=== PATIENT | male | born 1935 | race Caucasian/White ===

== ENCOUNTER 2017-08-09 17:30 | Inpatient (IN) | payer OTHER ==
[~2017-08-09] VITALS: Ht 167.6 cm; Wt 72.7 kg
--- NOTE | ~2017-08-09 | EKG ---
[place] [address] [facility] [place] [address] ELECTROCARDIOGRAM REPORT Name: SEEMA ODOM Room #: 428-P ADM IN M.R.#: [id number] Admission: 08/09/17 Attend Phys: Paxton Babb MD Discharge: Date of : 34 Report #: [id number] THIS REPORT FOR: //name// [facility] Test Date: 2017-08-09 Test Time: 18:54:26 Pat Name: SEEMA ODOM Department: Room: 428 P Gender: M Commissary Officer: Evelin KAPOOR : 1935 Requested By: Paxton Babb Order Number: [id number] MD: Genaro Randhawa Measurements Intervals [place] Rate: 69 P: 19 HI: 162 QRS: -57 QRSD: 102 T: 42 QT: 381 QTc: 408 Interpretive Statements Sinus rhythm LAD, consider left anterior fascicular block Early R-wave progression No previous ECG available for comparison Electronically Signed On 08-10-2017 8:31:34 [employer] by Genaro Randhawa [email or web address] <ELECTRONICALLY SIGNED> By: Genaro Randhawa MD, [facility] 08/10/17 0831 53 53 Genaro Randhawa MD, [facility] /EPI
--- NOTE | ~2017-08-09 | HC ---
[facility] [place] [address] CONSULTATION Name: ILENESEEMA D Room #: 428-P [facility] IN .R.#: [id number] Admission: 08/09/17 Attend Phys: Paxton Babb MD Discharge: Date of : 34 Report #: [id number] THIS REPORT FOR: //name// CC: Paxton Babb DATE OF SERVICE: 08/10/2017 ATTENDING PHYSICIAN: Dr. Babb. REASON FOR CONSULTATION: Leukocytosis. HISTORY OF PRESENT ILLNESS: The patient is an 81-year-old white man who resides at home with and he reported being weak, short winded and running low grade fevers up to 99.9. The patient has history of myelodysplasia and being immunosuppressed host. The possibility of infection entertained and admitted and started on Rocephin 1 gram daily and intravenous fluids and today, the patient states feeling much better. His hematologic and renal parameters have definitely improved. The patient has very slow response to all my questions and all I can extract from him is that he is feeling better. He voices no complaints. PAST MEDICAL HISTORY: 1. Mild progressive dementia, on Aricept and Namenda, but he was not able to tolerate those. 2. Diabetes type 2, on oral hypoglycemic agents. 3. Hypertension. 4. Coronary artery disease. 5. Aortic stenosis. 6. Dyslipidemia. 7. Mild coronary atherosclerosis of left anterior descending artery and the circumflex artery. Ejection fraction 40-45%. DRUG ALLERGIES: None listed. MEDICATIONS AT HOME: The patient is on treatment with glipizide, metoprolol, lisinopril, alprazolam at bedtime, atorvastatin, aspirin, multivitamins. Here in the hospital, the patient is on treatment with ceftriaxone 1 gram daily IV, metoprolol 25 p.o. b.i.d., lisinopril 2.5 mg at bedtime and normal saline 1000 mL IV every 12 hours. SOCIAL HISTORY: See H and P. FAMILY HISTORY: See H and P. REVIEW OF SYSTEMS: As above and see H and P, essentially negative. [address] [place] [address] CONSULTATION Name: SEEMA ODOM Jennifer Room #: 428-P [facility] IN ..#: [id number] Admission: 08/09/17 Attend Phys: Paxton Babb MD Discharge: Date of : 34 Report #: [id number] PHYSICAL EXAMINATION: GENERAL: A well-developed man, not toxic looking, afebrile since admission. VITAL SIGNS: Temperature 97.4, pulse 74, respirations 18, BP 106/47, height 5 feet 6 inches, weight 160 pounds. HEENMT: Within range. NECK: Supple. No thyromegaly or lymphadenopathy. LUNGS: Clear to auscultation. HEART: Loud ejection systolic murmur on the left lower sternal border that radiates into the right sternal border, possibly compatible with aortic stenosis murmur. No gallops. ABDOMEN: Soft, no masses or megaly. GENITALIA AND RECTAL: Revealed Healy catheter in place, and I cannot get a straight answer from him as to whether he has this on a continuous basis at home. EXTREMITIES: No clubbing, cyanosis. NEUROLOGIC: Grossly within normal limits. LABORATORY DATA: On admission, BUN 31, creatinine 1.7 and today the BUN is 29 and creatinine 1.1. Albumin at 3.4 grams on admission, dropped to 3.1 g/dL today. White blood cell count on admission 13,600 drops to 11,000 today. The hemoglobin low 8.2 g/dL, platelets normal 296,000 and the white blood cell count differential is normal. The hemoglobin A1c 7% with estimated average glucose of 154. The urinalysis revealed glycosuria and positive trace ketones, otherwise negative. ABGs revealed pH 7.40, pCO2 of 36, pO2 of 74, bicarbonate 22.6. The lactate elevated at 4.82. This set of gases on room air 21%. Urine culture and blood cultures were obtained and they remain negative at the time of this dictation. Chest x-ray on admission revealed no pulmonary infiltrates whatsoever. ASSESSMENT: 1. Leukocytosis, question etiology, improved. 2. Azotemia, resolved, possibly secondary to mild dehydration. 3. Lactic acidemia. 4. Myelodysplasia. 5. Mild hypoalbuminemia. 6. 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 7. Dementia. SUGGESTIONS: Recommend the patient appears to have improved with intravenous fluids and I suspect mild dehydration, may explain his azotemia, leukocytosis and lactic acidosis. If cultures remain all negative, may consider discontinuation of Rocephin after a few doses and switching the patient to cefuroxime 500 p.o. b.i.d. [address] [address] CONSULTATION Name: SEEMA ODOM Room #: 428-P [facility] IN M.R.#: [id number] Admission: 08/09/17 Attend Phys: Paxton Babb MD Discharge: Date of : 34 Report #: [id number] Babb, thank you for requesting my suggestions in the care of your patient. <ELECTRONICALLY SIGNED> By: Kel Almeida MD 08/11/17 1151 1354 1959 Kel Almeida MD /nt
--- NOTE | ~2017-08-09 | H ---
[facility] [place] [address] HISTORY AND PHYSICAL Name: SEEMA ODOM Room #: 428-P [facility] IN ..#: [id number] Admission: 08/09/17 Attend Phys: Paxton Babb MD Discharge: 08/12/17 Date of : 34 Report #: [id number] THIS REPORT FOR: //name// CC: Paxton Babb DATE OF SERVICE: 08/09/2017 CHIEF COMPLAINT: Weakness, shortness of breath, and fever. HISTORY OF PRESENT ILLNESS: This morning, his found him in the shower leaning up against the wall, unable to stand, having a hard time breathing. Since then, he has been short of breath with any exertion. He has had difficulty walking. He has had a cough, his right hand and his right foot and leg have been noted to be swollen and she feels that they are weak. He came to my office where his gait was very unsteady and weak. His blood pressure is 119/72, his temperature was 99.9, pulse was 68. He looked pale and ill. His gait was much more unsteady and slow than usual. Because of his fever with cough and a suggestion of respiratory infection and possible sepsis, admission is indicated. PAST MEDICAL HISTORY: Most significant for progressive dementia. He has not been able to tolerate either Aricept or Namenda for his dementia. He has become progressively forgetful. His had to quit work to take care of him full-time, before then their son who lives at home was able to help such that she could still work part-time. He has type 2 diabetes, well managed with oral medication. He has hypertension. He sees Dr. Guido Vincent for coronary artery disease, aortic stenosis and hypertension. He also has hyperlipidemia. His aortic stenosis was moderate on an echocardiogram in 01/2016. Coronary arteriogram in 03/2016 showed mild atherosclerosis of the LAD and left circumflex with an occluded right coronary artery. Ejection fraction is 40-45%. The distal RCA system was filled by left to right collaterals. He is reported as having had and non-ST elevation myocardial infarction 02/25/2016 and pneumonia that same date. He has mild myelodysplastic syndrome for the last 10 years and periodically receives an Aranesp injection with hemoglobin and hematocrit being checked every 2 weeks to every 4 weeks. CURRENT MEDICATIONS: Glipizide extended release 5 mg every morning, metoprolol tartrate 25 mg twice daily, lisinopril 5 mg 1/2 tablet at bedtime, alprazolam 0.25 mg 1 tablet at bedtime, atorvastatin 40 mg 1 in the morning, 81 mg of aspirin once daily, vitamin D3 in the morning, multiple vitamin in the morning. Aranesp every 2-4 weeks depending upon his hemoglobin needs. ALLERGIES: None known. [facility] [address] [place] [address] HISTORY AND PHYSICAL Name: SEEMA ODOM Room #: 428-P [facility] IN .R.#: [id number] Admission: 08/09/17 Attend Phys: Paxton Babb MD Discharge: 08/12/17 Date of : 34 Report #: [id number] SOCIAL HISTORY: He lives at home with his . He is retired and over the last 5 years has developed such ____ dementia that he is unable to take care of himself. He can still toilet himself. His , is his power of civil attorney for medical affairs, knows that he would not wish to be resuscitated given his current degree of cognitive dysfunction and Alzheimer disease. REVIEW OF SYSTEMS: Generally negative, the patient himself says that he is "fine." His reports over the last several months increasing shortness of breath with any activity at all. He has a current fever of 99.9. He wears a disposable undergarment for bladder control problems. PHYSICAL EXAMINATION: GENERAL: Shows an 80-year-old elderly male, who is in mild distress. HEENT: Remarkable for dry oral mucosa. The tympanic membranes both appeared relatively normal after removing some wax in the external canals. The oropharynx is only minimally dehydrated, and is otherwise unremarkable. The nares are mildly dry themselves. NECK: Negative. LUNGS: Clear to auscultation and percussion. CARDIOVASCULAR: S1 and S2 were normal with the soft systolic murmur at the right upper intercostal space with a regular rhythm. ABDOMEN: Soft and nontender without hepatosplenomegaly or masses. EXTREMITIES: There is no pedal edema on either foot. The skin of both feet is intact. There is mild decrease in sensation to light touch. NEUROLOGIC: Screening neurological examination shows that his gait is somewhat unsteady and unsure, but there are no focal neurological deficits. Oxygen saturation on room air while sitting is 98. Influenza A and influenza B by office testing were both negative. ASSESSMENT: 1. Sepsis. 2. With the cough, suspect the source of his infection is pulmonary. 3. Toxic encephalopathy - his reports he is more quiet than usual since his illness was noted earlier this morning. 4. Fever. 5. Cough. 6. Control in hypertension. 7. Mild dehydration from dry mucosa. 8. 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 9. Coronary artery disease. 10. Progressive dementia. PLAN: The patient is admitted for intravenous fluids and studies regarding the [address] [address] HISTORY AND PHYSICAL Name: SEEMA ODOM Room #: 428-P [facility]#: [id number] Admission: 08/09/17 Attend Phys: Paxton Babb MD Discharge: 08/12/17 Date of : 34 Report #: [id number] source of his fever. Physical Therapy and Occupational Therapy are being consulted. Case management is being consulted. An MRI of the brain is planned. Other investigations as results from current investigations return complete. The patient is a do not resuscitate status. <ELECTRONICALLY SIGNED> By: Paxton Babb MD 08/28/17 2302 1750 1856 Paxton Babb MD /nt
[2017-08-09 18:10] VITALS: BP 114/51
[2017-08-09 19:19] LABS: HEMATOCRIT 26.4 % (42.0-52.0); HEMOGLOBIN 8.9 gm/dL (14.0-18.0); MCH 38.4 pg (26.0-34.0); MCHC 33.5 g/dL (28.0-37.0); MCV 114.4 fL (80.0-100.0); PLATELET COUNT 322 thou/uL (150-400); RBC 2.31 mil/uL (4.50-6.00); RDW 19.1 % (10.5-14.5); WBC 13.6 thou/uL (4.0-11.0)
[2017-08-09 19:28] LABS: BE(vivo) -1.8 mmol/L (-2 to +3); HCO3 22.6 mmol/L (22.0-26.0); PCO2 36.8 mmHg (35.0-45.0); PO2 74.9 mmHg (80.0-100.0); pH 7.406 (7.360-7.450); sO2 95.2 % (92.0-98.0)
[2017-08-09 19:34] LABS: ALBUMIN 3.4 g/dL (3.4-5.0); CALCIUM 9.4 mg/dL (8.5-10.1); CREATININE 1.7 mg/dL (0.7-1.3); POTASSIUM 4.4 mmol/L (3.5-5.1); TOTAL BILIRUBIN 0.6 mg/dL (<0.1-1.0); TOTAL PROTEIN 6.3 g/dL (6.4-8.2)
[2017-08-09 20:00] VITALS: BP 118/50
[2017-08-09 20:02] LABS: FOLIC ACID 24.1 ng/mL (8.6-58.9); TSH 1.645 uIU/mL (0.358-3.740)
[2017-08-09] MEDS ORDERED: GLUCOTROL5 MG PO (21:46)
[2017-08-09] MEDS ORDERED: LOPRESSOR25 PO (21:47)
[2017-08-09] MEDS ORDERED: LISINOPRIL2.5 MG PO (21:48)
[2017-08-09] MEDS ORDERED: XANAX 0.25 MG0.25 MG PO (21:49)
[2017-08-09] MEDS ORDERED: ATORVASTATIN CA40 MG PO (21:50)
[2017-08-09] MEDS ORDERED: ASPIR 8181 MG PO (21:51)
[2017-08-09] MEDS ORDERED: CENTRUM SILVER1 EAC4 PO (21:51)
[2017-08-09 23:38] LABS: ABSOLUTE NEUTROPHILS 11.4 thou/uL (1.4-8.2); ANISOCYTOSIS 2+; LARGE PLATELETS RARE; MACROCYTES 2+
[2017-08-10 03:47] LABS: URINE BILIRUBIN NEGATIVE (Negative); URINE BLOOD NEGATIVE (Negative); URINE CLARITY CLEAR; URINE COLOR YELLOW; URINE GLUCOSE-RANDOM* 1+ (Negative); URINE KETONES TRACE (Negative); URINE LEUKOCYTES NEGATIVE (Negative); URINE NITRITE NEGATIVE (Negative); URINE PROTEIN (DIPSTICK) NEGATIVE (Negative); URINE SPECIFIC GRAVITY 1.025 (1.005-1.035); URINE UROBILINOGEN 0.2 E.U./dl (0.2-1.0)
[2017-08-10 04:32] VITALS: BP 135/61
[2017-08-10 06:41] LABS: ABSOLUTE NEUTROPHILS 7.4 thou/uL (1.4-8.2); BASOPHILS 1.3 % (0.0-2.0); EOSINOPHILS 1.3 % (0.0-3.0); HEMATOCRIT 24.2 % (42.0-52.0); HEMOGLOBIN 8.2 gm/dL (14.0-18.0); LYMPHOCYTES 18.8 % (24.0-44.0); MCH 38.2 pg (26.0-34.0); MCHC 33.7 g/dL (28.0-37.0); MCV 113.2 fL (80.0-100.0); MONOCYTES 11.8 % (1.0-8.0); PLATELET COUNT 296 thou/uL (150-400); POLYS 66.8 % (36.0-66.0); RBC 2.14 mil/uL (4.50-6.00)
[2017-08-10 06:59] LABS: ALBUMIN 3.1 g/dL (3.4-5.0); CALCIUM 8.8 mg/dL (8.5-10.1); CREATININE 1.1 mg/dL (0.7-1.3); POTASSIUM 4.1 mmol/L (3.5-5.1); TOTAL BILIRUBIN 0.7 mg/dL (<0.1-1.0); TOTAL PROTEIN 5.8 g/dL (6.4-8.2)
[2017-08-10 07:57] LABS: ANISOCYTOSIS 2+; MACROCYTES 2+; POLYCHROMASIA OCCASIONAL
[2017-08-10 09:00] VITALS: BP 106/47
[2017-08-10 14:50] VITALS: BP 117/45
[2017-08-10 19:08] LABS: PSA 1.5 ng/mL (0.0-4.0)
[2017-08-10 19:55] VITALS: BP 142/51
[2017-08-11 03:38] VITALS: BP 156/73
[2017-08-11 08:00] VITALS: BP 142/71
[2017-08-11 16:16] VITALS: BP 131/59
[2017-08-11 19:41] VITALS: BP 164/60
[2017-08-12 04:02] VITALS: BP 137/60
[2017-08-12 05:34] LABS: HEMATOCRIT 24.5 % (42.0-52.0); HEMOGLOBIN 8.4 gm/dL (14.0-18.0); MCH 38.9 pg (26.0-34.0); MCHC 34.4 g/dL (28.0-37.0); PLATELET COUNT 306 thou/uL (150-400); RBC 2.17 mil/uL (4.50-6.00); WBC 11.4 thou/uL (4.0-11.0)
[2017-08-12 05:56] LABS: ALBUMIN 2.9 g/dL (3.4-5.0); CALCIUM 8.3 mg/dL (8.5-10.1); CREATININE 0.8 mg/dL (0.7-1.3); POTASSIUM 3.9 mmol/L (3.5-5.1); TOTAL BILIRUBIN 0.9 mg/dL (<0.1-1.0); TOTAL PROTEIN 5.8 g/dL (6.4-8.2)
[2017-08-12 08:20] LABS: ABSOLUTE NEUTROPHILS 8.1 thou/uL (1.4-8.2)
[2017-08-12 08:22] LABS: ANISOCYTOSIS 2+; MACROCYTES 2+; OVALOCYTES 1+; POLYCHROMASIA SLIGHT
[2017-08-12 09:00] VITALS: BP 144/61
[2017-08-12] MEDS ORDERED: FLOMAX0.4 MG PO (13:27)
[2017-08-12] MEDS ORDERED: CEFUROXIME500 MG PO (13:29)
== END 2017-08-12 17:04 | DRG 871 ==
LOC: 4S 17:30 → 4E 18:02
PROVIDERS: Internal Medicine
DX: A41.9 Sepsis, unspecified organism (principal); G92 Toxic encephalopathy; N17.9 Acute kidney failure, unspecified; E11.9 Type 2 diabetes mellitus without complications; I10 Essential (primary) hypertension; I25.10 Atherosclerotic heart disease of native coronary artery without angina pectoris; E78.5 Hyperlipidemia, unspecified; D46.9 Myelodysplastic syndrome, unspecified; G30.9 Alzheimer's disease, unspecified; F02.80 Dementia in other diseases classified elsewhere, unspecified severity, without behavioral disturbance, psychotic disturbance, mood disturbance, and anxiety; E86.9 Volume depletion, unspecified
CPT/HCPCS: 10783

== ENCOUNTER 2017-10-25 10:58 | Inpatient (IN) | payer OTHER ==
[~2017-10-25] VITALS: Ht 170.2 cm; Wt 72.6 kg
--- NOTE | ~2017-10-25 | H ---
[facility] [place] [address] HISTORY AND PHYSICAL Name: SEEMA ODOM Room #: 419-P [facility] IN .R.#: [id number] Admission: 10/25/17 Attend Phys: Paxton Babb MD Discharge: Date of : 34 Report #: [id number] THIS REPORT FOR: //name// CC: Paxton Babb CHIEF COMPLAINT: Change in mental status. HISTORY OF PRESENT ILLNESS: Information is obtained from the Emergency Room record and from the patient's . He has not been eating or doing much at all for the last several days. He started to get up from a chair and walked to the bedroom and then just simply could not move any longer. He can hardly speak when spoken to. He stopped feeding himself. He has had foul smelling urine and he has been incontinent of bowels and bladder. In the Emergency Room, he was found to have no focal neurological signs, found to be weak. His urinalysis was grossly abnormal with white blood cell clumps. His lactic acid was elevated at 2.0. His white blood cell count was markedly elevated at 27,100 with a left shift. His creatinine was 1.1, which is close to his baseline of 1.0, but his BUN was elevated at 30 compared to a baseline of 22. His hemoglobin was low at 8.1 compared to his baseline of 9.6. He was felt to have sepsis with urinary tract as the source of the sepsis, and a urinary tract infection as well as to be dehydrated, and admission with intravenous fluids and intravenous antibiotics was indicated. PAST MEDICAL HISTORY: Significant for progressive Alzheimer disease. He was admitted on 08/09/2017 for sepsis, suspected source being a pulmonary infection. He was dehydrated. He was volume depleted and creatinine went from 1.7 to 0.8 on that hospital stay from 08/09/2017 to 08/12/2017. His albumin was low at 2.9 for moderately severe malnutrition. Tamsulosin was added for mild urine retention. He has myelodysplasia and is [facility]. He had a pressure ulcer to his left heel that has completely healed and was healed on exam today. He has stable coronary artery disease, type 2 diabetes, and hypertension. He has moderate aortic stenosis on echocardiogram 01/2016. Coronary arteriogram 09/2015 showed completely occluded right coronary artery with mild atherosclerosis of the left anterior descending and left circumflex. Ejection fraction was 40-45%. CURRENT MEDICATIONS: Aranesp every [address] Deshpande's office depending upon his hemoglobin needs. He takes aspirin 81 mg daily, atorvastatin 40 mg daily, vitamin D. He takes glipizide 5 mg once daily. He takes metoprolol tartrate 25 mg twice daily. Lisinopril 5 mg was discontinued several weeks ago because of low blood pressure in the office. Trazodone 50 mg at bedtime. [address] [address] HISTORY AND PHYSICAL Name: SEEMA ODOM Room #: 419-P [facility] IN [facility].#: [id number] Admission: 10/25/17 Attend Phys: Paxton Babb MD Discharge: Date of : 34 Report #: [id number] ALLERGIES: HE HAS NO KNOWN ALLERGIES. HE HAS BEEN INTOLERANT OF NAMENDA AND ARICEPT. REVIEW OF SYSTEMS: Noncontributory. PHYSICAL EXAMINATION: GENERAL: At the time of my examination in the hospital, he appeared more alert and recognized that I was his doctor. VITAL SIGNS: Temperature of 100.3. Respirations were 23. His heart rate was 100 on the monitor. His blood pressure was 109/57 and his oxygen saturation on room air was 95. HEENT: His tongue and oropharynx appeared dry. LUNGS: Clear. CARDIAC: He had a loud systolic ejection murmur and the rhythm was regular. S1, S2 were normal. ABDOMEN: Soft and nontender. EXTREMITIES: He had no edema in extremities. His left heel ulcer from several weeks ago was completely healed. LABORATORY DATA: His urinalysis was grossly abnormal. His BUN was 30 with the baseline of 22, his creatinine was 1.1 with a baseline of 0.8-1.0. Total bilirubin is mildly elevated at 1.6. His albumin was low at 2.9, and with rehydration dropped to 2.5 for continuing severe malnutrition. Lactic acid was 2.1 and increased to 3.1 several hours later. Troponin was negative. White count was elevated at 27,100 with a left shift of 80% neutrophils. Bands were elevated at 9%. Hemoglobin was 8.1. Portable chest x-ray showed no acute process. There were no signs for congestive heart failure. CT scan of the abdomen and pelvis showed only multiple gallstones without evidence of cholecystitis, multiple renal cysts of varying size, heterogeneous enlargement of the prostate gland with a mass effect on the base of the urinary bladder with mild circumferential wall thickening of the bladder suggesting cystitis or perhaps a chronic bladder outlet obstruction. A possible fecal impaction was also noted. ASSESSMENT: 1. Severe sepsis with heart rate over 90 despite beta-heladio, respiratory rate over 20 and white blood cell count over 12,000 with organ dysfunction with marked decrease in his baseline mental state. Infection is suspected in the urinary tract. 2. Urinary tract infection. 3. Findings suggestive of partial bladder outlet obstruction. 4. Large prostate on CT scanning. 5. History of progressive Alzheimer type dementia. [facility] [place] [address] HISTORY AND PHYSICAL Name: SEEMA ODOM Room #: 419-P [facility] IN ..#: [id number] Admission: 10/25/17 Attend Phys: Paxton Babb MD Discharge: Date of : 34 Report #: [id number] 6. Mild myelodysplasia, ongoing. 7. Volume depletion. 8. Other medical problems as in the history and physical above. ADDITIONAL DIAGNOSES: 1. Severe malnutrition. 2. Additional organ dysfunction measure is lactate of 3.1 (greater than 2). PLAN: The patient is admitted for intravenous fluids and intravenous antibiotics. Healy catheter is being placed to allow adequate urine drainage. After discussing his overall prognosis with his , she wishes that he be made a "do not resuscitate" and this was done. By: 1806 1841 Paxton Babb MD /nt
--- NOTE | ~2017-10-25 | EKG ---
[address] [place] [address] ELECTROCARDIOGRAM REPORT Name: SEEMA ODOM Room #: 419-P ADM IN M.R.#: [id number] Admission: 10/25/17 Attend Phys: Paxton Babb MD Discharge: Date of : 34 Report #: [id number] THIS REPORT FOR: //name// ED Test Date: 2017-10-25 Test Time: 10:59:49 Pat Name: SEEMA ODOM Department: Room: [facility] Gender: M Bar Catcher: JHONNY : 1935 Requested By: Nanci Childress Order Number: [id number] MD: Genaro Randhawa Measurements Intervals [place] Rate: 94 P: GA: QRS: -46 QRSD: 100 T: 58 QT: 373 QTc: 467 Interpretive Statements Sinus rhythm LAD, consider left anterior fascicular block Abnormal R-wave progression, early transition Minimal ST depression, anterolateral leads Compared to ECG 08/09/2017 18:54:26 ST (T wave) deviation now present Electronically Signed On 10-25-2017 17:06:22 CDT by Genaro Randhawa [email or web address] <ELECTRONICALLY SIGNED> By: Genaro Randhawa MD, [facility] 10/25/17 1706 1059 1059 Genaro Randhawa MD, [facility] /EPI
--- NOTE | ~2017-10-25 | HC ---
[facility] [address] CONSULTATION Name: ILENESEEMA Jennifer Room #: 419-P [facility] IN ..#: [id number] Admission: 10/25/17 Attend Phys: Kate Babb MD Discharge: Date of : 34 Report #: [id number] THIS REPORT FOR: //name// CC: KATE Babb REASON FOR CONSULTATION: History of myelodysplasia and anemia. HISTORY OF PRESENT ILLNESS: The patient is a very pleasant 81-year-old gentleman who I have known and worked with for approximately 7 years. He was diagnosed with myelodysplasia from a bone marrow biopsy on 11/25/2010. He began Aranesp in November of 2010. He has been receiving this about every 2-3 weeks in our office. When last checked on September 21, his hemoglobin was 10.5. He was recently admitted for mental status change, was found what appears to be gram negative sepsis/urinary tract infection. He is on the hospital floor and is able to answer some simple questions, but drifts off very quickly. Note that during his hospitalization, a CT abdomen and pelvis that showed no acute changes. He had gram-negative rods in his urine. He says ultrasound of his that was negative. He has had a fever. PAST MEDICAL HISTORY: As mentioned above is notable for the myelodysplasia, anemia related to that. Also, cognitive impairment, possible symptoms of early dementia, also hypertension, also type 2 diabetes. He also has a history of dyslipidemia, mild coronary atherosclerosis with an EF of 45% and 50%, also aortic stenosis. SOCIAL HISTORY: Unchanged and has a very supportive family and . MEDICATIONS: At this time in the hospital currently include tamsulosin 0.4 b.i.d. Pupils Zosyn 3.375 q.6, insulin on a sliding scale, Tylenol p.r.n. PHYSICAL EXAMINATION: GENERAL: The patient appears his stated age. He is an elderly male in bed. He was able to be awake and though somewhat slow to answer questions. VITAL SIGNS: Recent height is 5 feet 8, which is 170.2 cm. Weight is 160 pounds or 72.6 kilograms. Blood pressure is 97/60, O2 sat is 96%, respirations 18, pulse 102, temperature 98.2, but note that yesterday morning on 10/27/2017 400 in the morning, his temperature varied between 100.4 and 100.9. NEUROLOGIC: Face is symmetrical. He is moving extremities. LYMPHATICS: No enlarged lymph nodes in the supraclavicular, cervical, axillary region. ABDOMEN: Slightly obese. No hepatosplenomegaly. Nontender. HEENT: Oropharynx without any erythema or leukoplakia any lesions. EXTREMITIES: Have SCDs in place. LABORATORY DATA: Here is notable for a BUN of 17, creatinine of 0.9. Liver functions normal. Albumin 2.5. White count on admission 8.6, hemoglobin was [address] [address] CONSULTATION Name: SEEMA ODOM Room #: 419-P [facility] IN M.R.#: [id number] Admission: 10/25/17 Attend Phys: Kate Babb MD Discharge: Date of : 34 Report #: [id number] 8.1, is now 7.1, MCV 111.3, RDW 19.5, platelets of 293. No acute changes. TSH recently 1.6. Folate 24.1, B12 1595, PSA 1.5. ASSESSMENT AND PLAN: 1. Myelodysplasia with anemia, receives Aranesp as outpatient. Could transfuse if hemoglobin below 7. Suspect that recent drop in hemoglobin is related to intercurrent illness. 2. Gram-negative rods in urine and likely sepsis. Agree with antibiotics. Reportedly, clinically improving. 3. Cognitive impairment/dementia. Has been intolerant to oral agents before. 4. History of aortic stenosis and cardiac issues, defer to others. 5. Type 2 diabetes. Sliding scale insulin and Accu-Cheks as needed. 6. Weakness. Consider rehabilitation efforts when patient improves. We will follow with you. <ELECTRONICALLY SIGNED> By: Matt Deshpande MD 10/30/17 1322 0800 1838 Matt Deshpande MD /nt
[~2017-10-25 10:58] MED LIST: ASPIR 8181 MG PO; ATORVASTATIN CA40 MG PO; CEFUROXIME500 MG PO; CENTRUM SILVER1 EAC4 PO; FLOMAX0.4 MG PO; GLUCOTROL5 MG PO; LISINOPRIL2.5 MG PO; LOPRESSOR25 PO; XANAX 0.25 MG0.25 MG PO
[2017-10-25 10:59] VITALS: BP 124/48
[2017-10-25 11:25] LABS: HEMATOCRIT 24.5 % (42.0-52.0); HEMOGLOBIN 8.1 gm/dL (14.0-18.0); MCH 37.1 pg (26.0-34.0); MCHC 33.3 g/dL (28.0-37.0); MCV 111.3 fL (80.0-100.0); PLATELET COUNT 283 thou/uL (150-400); RDW 20.4 % (10.5-14.5); WBC 27.1 thou/uL (4.0-11.0)
[2017-10-25 11:28] LABS: CALCIUM 9.1 mg/dL (8.5-10.1); CREATININE 1.1 mg/dL (0.7-1.3); POTASSIUM 4.1 mmol/L (3.5-5.1)
[2017-10-25 11:36] LABS: ALBUMIN 2.9 g/dL (3.4-5.0); TOTAL BILIRUBIN 1.6 mg/dL (<0.1-1.0); TOTAL PROTEIN 6.6 g/dL (6.4-8.2); TROPONIN-I 0.05 ng/mL (<0.06)
[2017-10-25 12:24] LABS: ABSOLUTE NEUTROPHILS 24.4 thou/uL (1.4-8.2); ANISOCYTOSIS 1+
[2017-10-25 12:25] LABS: MACROCYTES 1+; OVALOCYTES FEW; POIKILOCYTOSIS 1+; POLYCHROMASIA SLIGHT
[2017-10-25 12:31] LABS: URINE BILIRUBIN NEGATIVE (Negative); URINE BLOOD 1+ (Negative); URINE CLARITY CLEAR; URINE COLOR YELLOW; URINE GLUCOSE-RANDOM* NEGATIVE (Negative); URINE KETONES NEGATIVE (Negative); URINE LEUKOCYTES 1+ (Negative); URINE NITRITE NEGATIVE (Negative); URINE PROTEIN (DIPSTICK) 1+ (Negative); URINE SPECIFIC GRAVITY >= 1.030 (1.005-1.035); URINE UROBILINOGEN 0.2 E.U./dl (0.2-1.0)
[2017-10-25] MEDS ORDERED: GLUCOTROL5 MG PO (12:33)
[2017-10-25] MEDS ORDERED: TRAZODONE HCL50 MG PO (12:35)
[2017-10-25] MEDS ORDERED: VITAMIN D2000 UNIT PO (12:35)
[2017-10-25 12:43] LABS: CASTS None Seen /LPF (None Seen); SQUAMOUS 0-3 Few /LPF (0-3)
[2017-10-25 12:44] LABS: BACTERIA >30 Many /HPF (None Seen); CRYSTALS None Seen /LPF (None Seen); URINE RBC 0-2 Rare /HPF (0-2); WBC CLUMPS Moderate (None Seen)
[2017-10-25 13:42] VITALS: BP 115/48
[2017-10-25 14:00] VITALS: BP 109/57
[2017-10-25 14:40] VITALS: BP 109/57
[2017-10-25 19:45] VITALS: BP 121/57
[2017-10-25 19:50] LABS: HEMATOCRIT 22.3 % (42.0-52.0); HEMOGLOBIN 7.7 gm/dL (14.0-18.0); MCHC 34.4 g/dL (28.0-37.0); MCV 110.5 fL (80.0-100.0); PLATELET COUNT 283 thou/uL (150-400); RBC 2.01 mil/uL (4.50-6.00); RDW 20.5 % (10.5-14.5); WBC 24.5 thou/uL (4.0-11.0)
[2017-10-25 19:54] LABS: CALCIUM 8.7 mg/dL (8.5-10.1); CREATININE 1.2 mg/dL (0.7-1.3); POTASSIUM 4.1 mmol/L (3.5-5.1)
[2017-10-25 20:11] LABS: ABSOLUTE NEUTROPHILS 21.3 thou/uL (1.4-8.2)
[2017-10-25 20:13] LABS: ANISOCYTOSIS 2+; MACROCYTES 2+; OVALOCYTES OCCASIONAL; POIKILOCYTOSIS 1+; SCHISTOCYTES OCCASIONAL; TEARDROPS OCCASIONAL
[2017-10-26 03:24] VITALS: BP 126/62
[2017-10-26 06:04] LABS: ABSOLUTE NEUTROPHILS 14.9 thou/uL (1.4-8.2); BASOPHILS 0.6 % (0.0-2.0); EOSINOPHILS 0.2 % (0.0-3.0); HEMATOCRIT 22.1 % (42.0-52.0); HEMOGLOBIN 7.4 gm/dL (14.0-18.0); LYMPHOCYTES 8.7 % (24.0-44.0); MCH 37.2 pg (26.0-34.0); MCHC 33.5 g/dL (28.0-37.0); MCV 111.1 fL (80.0-100.0); MONOCYTES 6.5 % (1.0-8.0); PLATELET COUNT 271 thou/uL (150-400); RBC 1.99 mil/uL (4.50-6.00); RDW 20.4 % (10.5-14.5); WBC 17.8 thou/uL (4.0-11.0)
[2017-10-26 06:25] LABS: ALBUMIN 2.5 g/dL (3.4-5.0); CALCIUM 8.6 mg/dL (8.5-10.1); POTASSIUM 3.7 mmol/L (3.5-5.1); TOTAL BILIRUBIN 0.9 mg/dL (<0.1-1.0); TOTAL PROTEIN 5.8 g/dL (6.4-8.2)
[2017-10-26 07:33] LABS: ANISOCYTOSIS 2+; MACROCYTES 2+; OVALOCYTES FEW; POLYCHROMASIA OCCASIONAL
[2017-10-26 07:55] VITALS: BP 115/45
[2017-10-26 15:05] VITALS: BP 124/35
[2017-10-26 20:00] VITALS: BP 113/58
[2017-10-27 04:00] VITALS: BP 109/64
[2017-10-27 05:50] LABS: HEMATOCRIT 21.4 % (42.0-52.0); HEMOGLOBIN 7.3 gm/dL (14.0-18.0); MCH 37.9 pg (26.0-34.0); MCHC 34.1 g/dL (28.0-37.0); MCV 111.2 fL (80.0-100.0); RBC 1.92 mil/uL (4.50-6.00); WBC 10.4 thou/uL (4.0-11.0)
[2017-10-27 06:03] LABS: CALCIUM 8.1 mg/dL (8.5-10.1); CREATININE 0.9 mg/dL (0.7-1.3); POTASSIUM 3.7 mmol/L (3.5-5.1)
[2017-10-27 07:02] VITALS: BP 113/61
[2017-10-27 17:15] VITALS: BP 101/44
[2017-10-27 19:12] VITALS: BP 104/44
[2017-10-28 05:15] VITALS: BP 97/60
[2017-10-28 06:55] LABS: HEMATOCRIT 20.8 % (42.0-52.0); HEMOGLOBIN 7.1 gm/dL (14.0-18.0); MCH 37.5 pg (26.0-34.0); MCHC 33.9 g/dL (28.0-37.0); MCV 110.5 fL (80.0-100.0); RBC 1.88 mil/uL (4.50-6.00); RDW 19.5 % (10.5-14.5); WBC 8.6 thou/uL (4.0-11.0)
[2017-10-28 06:57] LABS: CALCIUM 8.2 mg/dL (8.5-10.1); CREATININE 0.9 mg/dL (0.7-1.3); POTASSIUM 3.8 mmol/L (3.5-5.1)
[2017-10-28 07:00] VITALS: BP 93/54
[2017-10-28 20:44] VITALS: BP 108/60; BP 117/62
[2017-10-28 20:48] VITALS: BP 119/64
[2017-10-29 04:29] VITALS: BP 101/54
[2017-10-29 06:02] LABS: HEMATOCRIT 25.4 % (42.0-52.0); HEMOGLOBIN 8.8 gm/dL (14.0-18.0)
[2017-10-29 07:10] VITALS: BP 112/58
[2017-10-29 15:34] VITALS: BP 114/63
[2017-10-29 20:00] VITALS: BP 121/69
[2017-10-30 04:20] VITALS: BP 115/63
[2017-10-30 08:20] VITALS: BP 112/58
[2017-10-30 19:27] VITALS: BP 133/73
[2017-10-31 04:19] VITALS: BP 123/62
[2017-10-31 07:10] VITALS: BP 113/57
[2017-10-31 15:10] VITALS: BP 95/46
[2017-10-31] MEDS ORDERED: NOVOLOG100 UNIT/1 SUBQ (16:54)
[2017-10-31] MEDS ORDERED: FLOMAX0.4 MG PO (16:54)
[2017-10-31] MEDS ORDERED: CIPROFLOXACIN250 M2 PO (16:57)
[2017-10-31] MEDS ORDERED: PAIN & FEVER325 MG PO (16:57)
[2017-10-31 20:05] VITALS: BP 103/75
[2017-11-01 04:08] VITALS: BP 117/54
[2017-11-01 07:31] VITALS: BP 115/63
== END 2017-11-01 11:57 | DRG 871 ==
LOC: ER 10:58 → EROBS 13:07 → 4E 13:07
PROVIDERS: Internal Medicine; Nurse Practitioner Family
PROC: 30233N1 Transfusion of Nonautologous Red Blood Cells into Peripheral Vein, Percutaneous Approach (ICD-10-PCS; principal; 2017-10-28)
DX: A41.9 Sepsis, unspecified organism (principal); G92 Toxic encephalopathy; E43 Unspecified severe protein-calorie malnutrition; N39.0 Urinary tract infection, site not specified; N17.9 Acute kidney failure, unspecified; E11.9 Type 2 diabetes mellitus without complications; G30.9 Alzheimer's disease, unspecified; F02.80 Dementia in other diseases classified elsewhere, unspecified severity, without behavioral disturbance, psychotic disturbance, mood disturbance, and anxiety; R65.20 Severe sepsis without septic shock; N32.0 Bladder-neck obstruction; I10 Essential (primary) hypertension; E78.5 Hyperlipidemia, unspecified; D46.9 Myelodysplastic syndrome, unspecified; Z66 Do not resuscitate; B96.20 Unspecified Escherichia coli [E. coli] as the cause of diseases classified elsewhere; N40.1 Benign prostatic hyperplasia with lower urinary tract symptoms; R33.8 Other retention of urine; I25.10 Atherosclerotic heart disease of native coronary artery without angina pectoris; E66.9 Obesity, unspecified; Z68.25 Body mass index [BMI] 25.0-25.9, adult; Z79.82 Long term (current) use of aspirin; Z79.899 Other long term (current) drug therapy
CPT/HCPCS: 10183